=== PATIENT | female | born 1940 | race Caucasian/White ===

== ENCOUNTER → 2017-01-01 08:55 | Outpatient (CLI) | payer MEDICARE, OTHER ==
[~2017-01-01 08:55] MED LIST: ASPIRIN325 MG PO; COZAAR100 MG PO; FOLATE0.4 MG; HYDROCODONE-APA1 TAB; HYDROXYZINE HCL10 MG; OXAZEPAM15 MG PO; PLAVIX75 MG; PRILOSEC20 MG PO; RESTORIL15 MG PO; ZEBETA5 MG PO; ZETIA10 MG PO
== END | disposition home or self-care (01) ==
LOC: D.CT 08:55
DX: R91.1 Solitary pulmonary nodule (principal)

== ENCOUNTER 2017-04-21 10:18 | Outpatient (CLI) | payer MEDICARE, OTHER ==
--- NOTE | ~2017-04-21 | HEMODYNAMI ---
PATIENT:NICOLE CABA MEDICAL RECORD: [id number] : 40 LOCATION:[facility]SE[facility]ST[facility]N ADMISSION DATE: 04/21/17 Generatedon:04/21/201712:41 Patient name: NICOLE CABA Patient #: [id number] SSN: DO B: 1940 Date of study: 04/21/2017 Page: Of Hemodynamic Procedure Report Patient Data Patient Demographics Procedure consent was obtained First Name: NICOLE Gender: Female Last Name: GERTRUDIS : 1940 Middle Initial: HAND Age: 76 year(s) Patient #: [id number] Race: Unknown Additional ID: [id number] Contact details [address]: [address] [place] [address] State: [place] City: [place] Zip code: [address] Past Medical History Allergies Allergen Reaction Date Comments Reported Other allergy 04/21/2017 Codeine, Demerol, Possible contrast Admission Admission Data Admission Date: 04/21/2017 Admission Time: 10:18 Procedure Procedure Types Cath Procedure Miscellaneous Procedures Moderate Sedation up to 15 minutes Moderate Sedation up to 30 minutes Peripheral Cath Diagnostic Procedure Cath Peripheral Miqjb-Pdvlfhg-Zxk-Off Peripheral vascular Intervention Angioplasty DENTAL PRACTICE MANAGER Peripheral Artery Additional Stent Stent-Fem/Popw/plasty Procedure Description Procedure Date Procedure Date: 04/21/2017 Procedure Start Time: 12:07 Procedure End Time: 12:33 Procedure Staff Name Function Chalo Leigh MD Performing Physician Magalis Sparrow RT Scrub Bogdan Ponce RN Nurse Mery Fortune RT Monitor Zacarias Bishop RN Linux Kernel Developer Procedure Data Cath Procedure Fluoroscopy Diagnostic fluoroscopy Total fluoroscopy Time: 7.4 time: 7.4 min min Diagnostic fluoroscopy Total fluoroscopy dose: 122 dose: 122 mGy mGy Contrast Material Contrast Material Type Amount (ml) Isovue 300 106 Entry Location Entry Primary Successful Side Size Upsize Upsize Entry Closure Succes sful Closure Location (Fr) 1 (Fr) 2 (Fr) Remarks Device Remarks Femoral Right 5 Fr 6 Fr 6 Fr Exoseal artery Long Short Estimated blood loss: 5 ml Diagnostic catheters Device Type Used For End Catheter Placement Cordis Tempo 5Fr UF Multi-vessel catheter Angiography Procedure Complications No complications Procedure Medications Medication Administration Route Dosage Oxygen NC 2 l/min Lidocaine 2% added to field 20 Heparin Flush Bag added to field 2 bags (1000units/500ml NS) 0.9% NaCl I.V. 100 ml/hr Versed I.V. 1 mg Fentanyl I.V. 50 mcg Heparin Bolus I.V. 4000 units Versed I.V. 1 mg Fentanyl I.V. 50 mcg Fentanyl I.V. 50 mcg Fentanyl I.V. 50 mcg Hemodynamics Rest Heart Rate: 95 (bpm) Snapshots Pre Cath Intra NCS Post Cath Vital Signs Time Heart Resp SPO2 NIBP (mmHg) Rhythm Pain Sedation Rate (ipm) (%) Status Level (bpm) 11:57:41 101 16 97 185/111(139) NSR 0 (11) 10(A) , No pain 12:01:59 89 13 99 179/99(149) NSR 0 (11) 10(A) , No pain 12:06:19 79 16 100 151/83(117) NSR 0 (11) 10(A) , No pain 12:10:31 77 17 96 135/76(113) NSR 0 (11) 10(A) , No pain 12:14:39 76 16 100 130/73(110) NSR 0 (11) 9(A) , No pain 12:18:47 68 16 100 129/71(106) NSR 0 (11) 9(A) , No pain 12:22:54 76 15 99 131/67(104) NSR 0 (11) 9(A) , No pain 12:27:02 78 15 100 135/72(109) NSR 0 (11) 9(A) , No pain 12:31:10 77 16 100 129/71(107) NSR 0 (11) 10(A) , No pain Medications Time Medication Route Dose Verified Delivered Reason Notes Effectiveness by by 12:02:57 Oxygen NC 2 Chalo Mcfadden used for l/min Reese Ponce frameman 12:03:12 Lidocaine 2% added 20ml Chalo Isabel for local to vial Reese Leigh MD anesthetic field 12:03:19 Heparin Flush added 2 Chalo Isabel used for Bag to bags Reese Leigh MD procedure (1000units/500ml field NS) 12:03:27 0.9% NaCl I.V. 100 Chalo Buffie Per physician ml/hr Reese Ponce RN 12:07:21 Versed I.V. 1 mg Chalo Buffie for sedation Reese Ponce RN 12:07:27 Fentanyl I.V. 50 Chalo Buffie for sedation mcg Reese Ponce RN 12:15:10 Heparin Bolus I.V. 4000 Chalo Buffie for verifi ed units Reese Ponce RN anticoagulation with dr leigh 12:17:56 Versed I.V. 1 mg Chalo Buffie for sedation Reese Ponce RN 12:18:00 Fentanyl I.V. 50 Chalo Buffie for sedation mcg Reese Ponce RN 12:24:57 Fentanyl I.V. 50 Chalo Buffie for sedation mcg Reese Ponce RN 12:29:20 Fentanyl I.V. 50 Chalo Buffie for sedation mcg Reese Ponce RN Procedure Log Time Note 11:47:24 Zacarias Bishop RN sent for patient. Start room use. 11:47:25 Time tracking: Regular hours 11:47:29 Plan of Care:Hemodynamics will remain stable., Cardiac rhythm will remain stable., Comfort level will be maintained., Respiratory function will remain adequate., Patient/ family verbilizes understanding of procedure., Procedure tolerated without complication., Recovers from procedure without complications.. 11:49:04 Patient received from Pre/Post Procedure Room to CCL 2 Alert and oriented. Tansferred to table in Supine position. 11:49:05 Warm blankets applied, and gisele hugger turned on for patient comfort. 11:49:05 Correct patient and procedure confirmed by team. 11:49:06 Signed procedure consent form obtained from patient. 11:49:07 ECG and BP/O2 sat monitors applied to patient. 11:56:37 Vital chart was started 11:59:10 Baseline sample Acquired. 11:59:23 Rhythm: sinus rhythm 11:59:25 Full Disclosure recording started 11:59:37 H&P Date Dictated: 04/19/2017 Within 30 days and on chart., H&P Addendum completed by physician on day of procedure. (MUST COMPLETE FOR ALL OUTPATIENTS). 11:59:38 Pre-procedure instructions explained to patient. 11:59:39 Pre-op teaching completed and patient verbalized understanding. 11:59:40 Family in waiting room. 11:59:41 Patient NPO since Midnight. 12:00:13 Patient allergic to Other allergyCodeine, Demerol, Possible contrast 12:00:16 Is the patient allergic to Iodine/contrast media? Yes. 12:00:17 Was the patient premedicated? Yes 12:00:22 Is patient on blood thinner?Yes 12:00:50 Patient diabetic? No. 12:00:55 Previous problem with sedation/anesthesia? No ? 12:00:57 Snore? Yes 12:00:58 Sleep apnea? No 12:00:58 Deviated septum? No 12:00:59 Opens mouth fully? Yes 12:01:00 Sticks out tongue? Yes 12:01:01 Airway obstruction? No ? 12:01:04 Dentures? No ? 12:02:57 Oxygen 2 l/min NC was administered by Bogdan Ponce RN; used for procedure; 12:03:12 Lidocaine 2% 20ml vial added to field was administered by Chalo Leigh MD; for local anesthetic; 12:03:19 Heparin Flush Bag (1000units/500ml NS) 2 bags added to field was administered by Chalo Leigh MD; used for procedure; 12:03:27 0.9% NaCl 100 ml/hr I.V. was administered by Bogdan Ponce RN; Per physician; 12:03:51 Pre procedure: right dorsailis pedis pulse Doppler 12:03:54 Pre procedure: left dorsailis pedis pulse Doppler 12:03:56 Patient pain scale 0/10 ?. 12:04:02 IV patent on arrival in left forearm with 0.9% NaCl at [facility]. 12:05:30 Bilateral groins area was prepped with chlora-prep and draped in sterile fashion 12:05:32 Alarms reviewed by R. N. 12:05:32 Sharps counted by scrub and verified by R.N. 12:05:34 Physician arrived 12:05:34 --------ALL STOP TIME OUT------ 12:05:35 Final Timeout: patient, procedure, and site verified with staff and physician. All members of the team are in agreement. 12:05:37 Bilateral groins site verified by team. 12:05:39 Physical assessment completed. ASA score P 2 - A patient with mild systemic disease as per Chalo Leigh MD. 12:05:43 Sedation plan: IV Moderate Sedation Versed, Fentanyl 12:05:53 Use device set Femoral Dx 12:05:54 Acist Syringe opened to sterile field. 12:05:55 Bag Decanter opened to sterile field. 12:05:55 Medline Cath Pack opened to sterile field. 12:05:56 Terumo 5Fr [place] Sheath opened to sterile field. 12:05:57 St Alberto 260cm J .035 wire opened to sterile field. 12:06:02 Acist Hand Control opened to sterile field. 12:06:03 Acist Manifold opened to sterile field. 12:06:05 Tegaderm 4 x 4 opened to sterile field. 12:07:21 Versed 1 mg I.V. was administered by Bogdan Ponce RN; for sedation; 12:07:27 Fentanyl 50 mcg I.V. was administered by Bogdan Ponce RN; for sedation; 12:07:46 Procedure started. 12:07:50 Local anesthetic to right femoral artery with Lidocaine 2% by Chalo Leigh MD.INITIAL ACCESS ONLY 12:09:50 A 5 Fr sheath was inserted into the Right Femoral artery 12:10:00 A [employer] 5Fr UF catheter was advanced over the wire and used for Multi-vessel Angiography. 12:10:04 Abdominal angiogram w/ runoff was performed. 12:12:38 Catheter removed. 12:12:51 Terumo 6Fr [place] Destination Sheath opened to sterile field. 12:13:15 Merit BasixCompak Inflation Kit opened to sterile field. 12:13:16 [place] Sci Choice PT Extra Support J 300cm .014 gu opened to sterile field. 12:13:54 Terumo ANGLE 260cm glide wire opened to sterile field. 12:15:10 Heparin Bolus 4000 units I.V. was administered by Bogdan Ponce RN; for anticoagulation; verified with dr leigh 12:15:19 glide wire advanced. 12:15:27 Sheath upsized to a 6 Fr Long. 12:16:04 Terumo TORQUE DEVICE PLASTIC .038 opened to sterile field. 12:17:13 glide wire exchanged for choice pt wire 12:17:56 Versed 1 mg I.V. was administered by Bogdan Ponce RN; for sedation; 12:18:00 Fentanyl 50 mcg I.V. was administered by Bogdan Ponce RN; for sedation; 12:18:23 Inflation number: 1 A Saber 5.0 X 4 X 150 balloon was prepped and advanced across the Mid Posterior Tibial, Left, then inflated to 3 AILYN for 0:10 (min:sec). 12:19:01 Inflation number: 1 The Saber 5.0 X 4 X 150 balloon was reinflated across the Mid Popliteal, Left, to 5 AILYN for 0:10 (min:sec). 12:19:20 Inflation number: 1 The Saber 5.0 X 4 X 150 balloon was reinflated across the Mid Superficial Femoral, Left, to 9 AILYN for 0:10 (min:sec). 12:19:32 Inflation number: 2 The Saber 5.0 X 4 X 150 balloon was reinflated across the Mid Superficial Femoral, Left, to 9 AILYN for 0:10 (min:sec). 12:20:08 Balloon removed over the wire. 12:23:04 Cordis SMART Flex 5 X 40 X 120 stent was deployed across Mid Popliteal, Left . 12:24:52 Cordis SMART 6 X 80 X 120 stent was deployed across Mid Superficial Femoral, Left . 12:24:57 Fentanyl 50 mcg I.V. was administered by Bogdan Ponce RN; for sedation; 12:26:35 Inflation number: 3 A Saber 6.0 x 8 x 150 balloon was prepped and advanced across the Mid Superficial Femoral, Left, then inflated to 11 AILYN for 0:10 (min:sec). 12:26:41 Inflation number: 4 The Saber 6.0 x 8 x 150 balloon was reinflated across the Mid Superficial Femoral, Left, to 11 AILYN for 0:10 (min:sec). 12:27:13 Inflation number: 5 The Saber 6.0 x 8 x 150 balloon was reinflated across the Mid Superficial Femoral, Left, to 5 AILYN for 0:10 (min:sec). 12:28:46 Balloon removed over the wire. 12:28:48 Wire removed. 12:28:49 Guide catheter removed. 12:29:00 Terumo 6Fr [place] Sheath opened to sterile field. 12:29:11 Sheath upsized to a 6 Fr Short. 12:29:20 Fentanyl 50 mcg I.V. was administered by Bogdan Ponce RN; for sedation; 12:29:22 Cordis 6Fr Exoseal opened to sterile field. 12:29:45 Sheath removed intact; hemostasis achieved with Exoseal to the Right Femoral artery. 12:30:08 Procedure ended.(Physican Out) 12::39 Fluoroscopy time 07.40 minutes. 12::44 Flurop Dose total: 122 12::44 Fluoroscopy dose: 122 mGy 12:30:49 Contrast amount:Isovue 300 106ml. 12:30:50 Sharps counted by scrub and verified by R.N. 12:31:20 Insertion/operative site no bleeding no hematoma. 12:31:23 Post-op/insertion site Right Femoral artery dressed using a 4 x 4 and Tegaderm. 12:31:25 Post right femoral artery:stable 12::27 Post Procedure Pulses reassessed and unchanged 12::30 Post procedure rhythm: unchanged. 12:31:33 Estimated blood loss: 5 ml 12:31:34 Post procedure instruction explained to patient.Patient verbalizes understanding. 12:31:34 Patient needs reinforcement of post procedure teaching. 12:33:15 Procedure type changed to Cath procedure, Miscellaneous Procedures, Moderate Sedation up to 15 minutes, Moderate Sedation up to 30 minutes, Peripheral Cath Diagnostic Procedure, Cath Peripheral, Jzbqy-Lktaxwh-Jal-Off, Peripheral vascular Intervention, Angioplasty, DENTAL PRACTICE MANAGER Peripheral Artery Additional, Stent, Stent-Fem/Popw/plasty 12:33:17 Procedure and supply charges have been captured, reviewed, submitted and are correct. 12:33:21 Procedure Complication : No complications 12:33:24 Vital chart was stopped 12:33:25 See physician's report for complete and final results. 12:33:29 Report given to Pre/Post Procedure Room. 12:33:32 Patient transfered to Pre/Post Procedure Room with Stretcher. 12:33:34 Procedure ended. 12:33:34 Full Disclosure recording stopped 12:33:39 End room use (Document Last) Intervention Summary Intervention Notes Time ActionType Lesion and Equipment Action# Pressure Duration Attributes Used 12:18:23 Inflate Mid Saber 5.0 1 3 00:10 balloon Posterior X 4 X 150 Tibial, balloon Left 12:19:01 Reinflate Mid Saber 5.0 1 5 00:10 balloon Popliteal, X 4 X 150 Left balloon 12:19:20 Reinflate Mid Saber 5.0 1 9 00:10 balloon Superficial X 4 X 150 Femoral, balloon Left 12:19:32 Reinflate Mid Saber 5.0 2 9 00:10 balloon Superficial X 4 X 150 Femoral, balloon Left 12:23:04 Deploy self Mid Cordis 1 expanding Popliteal, SMART stent Left Flex 5 X 40 X 120 stent 12:24:52 Deploy self Mid Cordis 1 expanding Superficial SMART 6 X stent Femoral, 80 X 120 Left stent 12:26:35 Inflate Mid Saber 6.0 3 11 00:10 balloon Superficial x 8 x 150 Femoral, balloon Left 12:26:41 Reinflate Mid Saber 6.0 4 11 00:10 balloon Superficial x 8 x 150 Femoral, balloon Left 12:27:13 Reinflate Mid Saber 6.0 5 5 00:10 balloon Superficial x 8 x 150 Femoral, balloon Left Device Usage Item Name Manufacture Quantity Catalog Number Hospital Part Current Minim al Lot# / Charge Number Stock Stock Serial# Code Acist Acist 1 [id number] [id number] 20 Syringe Medical Systems Inc Bag Microtek 1 2002S 522113 21190 090783 5 DecHarimata Medical Inc. Medline Cardinal 1 [id number] [id number] 27465 139926 5 Cath Pack Health Terumo 5Fr Terumo 1 [id number] 895104 261903 685182 [address] Alberto 1 027581 319876 588825 794222 30 260cm J .035 wire Acist Hand Acist 1 66610 594200 333842 890343 5 Control Medical Systems Inc Acist Acist 1 86787 159440 511371 171878 5 Manifold Medical Systems Inc Tegaderm 4 3M 1 1626W 357265 944657 189913 5 x 4 Cordis Cardinal 1 [id number] 781802 965104 621092 10 Tempo 5Fr Health UF catheter Terumo 6Fr Terumo 1 RSR01 199808 72587 295013 5 [place] Destination Sheath Merit Merit 1 [id number] 573393 584319 249656 15 Referrizer Medical Inflation Kit [place]enn[place] Sci Denniston 1 [id number] 458591 317588 911848 5 Choice PT Scientific Extra Support J 300cm .014 gu Terumo Terumo 1 [id number] 994624 019373 278675 5 ANGLE 260cm glide wire Terumo [place]enn[place] 1 TD01 355032 201688 319380 5 TORQUE Scientific DEVICE PLASTIC .038 Saber 5.0 X Cardinal 1 [id number] 550083 061150 5 4 X 150 Health balloon Cordis Cardinal 1 [id number] 264983 339232 0 09406 SMART Flex Health 5 X 40 X 120 stent Cordis Cardinal 1 [id number] 807024 806093 0 [id number] SMART 6 X Health 80 X 120 stent Saber 6.0 x Cardinal 1 [id number] 119879 162336 670442 5 8 x 150 Health balloon Terumo 6Fr Terumo 1 [id number] 154636 857813 445499 40 [place] Sheath Cordis 6Fr Cardinal 1 EX600 038313 101831 426172 10 [facility] Signature Audit Aubrey Stage Time Signature Unsigned Intra-Procedure 04/21/2017 Mery Fortune 12:41:02 PM RT(R) Signatures Monitor : Mery Fortune RT Signature : Date : Time : [id number] [place] [address]
[2017-04-21] MEDS ORDERED: ZOCOR40 MG PO (10:38)
[2017-04-21] MEDS ORDERED: ZOLOFT50 MG PO (10:39)
[2017-04-21] MEDS ORDERED: INDOCIN25 MG PO (10:39)
[2017-04-21] MEDS ORDERED: ZETIA10 MG PO (10:40)
[2017-04-21] MEDS ORDERED: HYDROCODON-ACE1 EAC7 PO (10:41)
[2017-04-21] MEDS ORDERED: BISOPROLOL-HCT1 EAC1 PO (10:42)
[2017-04-21] MEDS ORDERED: GABAPENTIN100 MG PO (10:42)
[2017-04-21] MEDS ORDERED: OXAZEPAM30 MG PO (10:43)
[2017-04-21 10:56] VITALS: BP 173/68; BMI 27.5
[2017-04-21 12:13] LABS: ANION GAP 17.5 mmol/L (8-16); CALCIUM 9.9 mg/dL (8.5-10.1); CARBON DIOXIDE 24.6 mmol/L (21.0-32.0); CREATININE - SERUM 1.8 mg/dL (0.6-1.3); POTASSIUM - SERUM 5.1 mmol/L (3.5-5.1)
[2017-04-21 12:30] LABS: BASOPHILS 0.1 % (0-2); EOSINOPHILS 0 % (0-7); HEMATOCRIT 37.5 % (36.0-48.0); HEMOGLOBIN 11.8 g/dL (12-16); IMMATURE GRANULOCYTES 0.1 % (0-5); LYMPHOCYTES 20.6 % (15-50); MCH 28.4 pg (26.0-34.0); MCHC 31.5 g/dL (31.0-37.0); MCV 90.4 fL (80.0-100.0); MEAN PLATELET VOLUME 10.7 fL (7.4-10.4); MONOCYTES 2.1 % (2-11); NEUTROPHILS 77.1 % (40-80); PLATELET COUNT 226 10x3/uL (130-400); RBC 4.15 10x6/uL (4.00-5.40); RDW 16.5 % (11.5-14.5); WBC 7.2 10x3/uL (4.8-10.8)
--- NOTE | 2017-04-21 13:10 | NUR ---
2L NC, NO RESP DISTRESS NOTED. RIGHT GROIN 6F EXOSEAL CDI, NO BLEEDING OR HEMATOMA NOTED. VSS. NO C/O PAIN OR NAUSEA AT THIS TIME. INSTRUCTED PT TO KEEP HEAD FLAT ON PILLOW AND RIGHT LEG STRAIGHT. FAMILY AT BEDSIDE, CALL LIGHT WITHIN REACH.
--- NOTE | 2017-04-21 13:40 | NUR ---
RESTING QUIETLY WITH EYES CLOSED. 2L NC, NO RESP DISTRESS NOTED. RIGHT GROIN 6F EXOSEAL CDI, NO BLEEDING OR HEMATOMA NOTED. VSS. NO C/O AT THIS TIME. WILL CONTINUE TO MONITOR.
--- NOTE | 2017-04-21 13:55 | NUR ---
RESTING QUIETLY WITH EYES CLOSED. RIGHT GROIN 6F EXOSEAL CDI, NO BLEEDIG OR HEMATOMA NOTED. 2L NC, NO RESP DISTRESS. NO C/O AT THIST G[place]. VSS. CALL LIGHT WITHIN REACH.
--- NOTE | 2017-04-21 14:25 | NUR ---
2L NC, NO RESP DISTRESS NOTED. RIGHT GROIN 6F EXOSEAL CDI, NO BLEEDING OR HEMATOMA NOTED. DENIES ANY PAIN OR NAUSEA. VSS. WILL CONTINUE TO MONITOR.
--- NOTE | 2017-04-21 16:00 | NUR ---
HOB ELEVATED 30 DEGREES. RIGHT GROIN 6F EXOSEAL CDI, NO BLEEDING OR HEMATOMA NOTED.
--- NOTE | 2017-04-21 16:11 | NUR ---
LEFT HAND PIV D/C'D WITH CATHETER INTACT, BAND AID TO SITE. UP TO BEDSIDE TO GET DRESSED.
--- NOTE | 2017-04-21 16:20 | NUR ---
UP TO RESTROOM TO VOID.
--- NOTE | 2017-04-21 16:30 | NUR ---
DISCHARGE INSTRUCTIONS GIVEN, VERBALIZED UNDERSTANDING. TAKEN OUT VIA WHEELCHAIR BY CATH SHEET METAL ERECTOR. LEFT FACILITY WITH FAMILY MEMBER AND ALL PERSONAL BELONGINGS.
--- NOTE | 2017-04-23 16:47 | OP ---
PATIENT NAME: NICOLE CABA MEDICAL RECORD: [id number] :40 LOCATION:D.CAT ADMISSION DATE: SURGEON: PARIS SALGADO MD DATE OF OPERATION: 04/21/2017 PROCEDURES: 1. CLOTHING PATTERN PREPARER and stent, SFA, left. 2. CLOTHING PATTERN PREPARER and stent, popliteal, left. 3. CLOTHING PATTERN PREPARER, posterior tibial, left. 4. Aortofemoral runoff. 5. Abdominal aortography. INDICATIONS: Claudication and peripheral vascular disease. PROCEDURE IN DETAIL: After informed consent was obtained and after detailed explanation of risks, benefits as well as alternative therapies, the patient elected to proceed with angiogram and angioplasty. The right femoral area was prepped and draped in normal sterile fashion. The right femoral artery was cannulated via modified Seldinger technique with placement of a 6-Malay etwtty-eak-nsce sheath. All catheters were exchanged through the sheath. FINDINGS: The abdominal aortography was performed. The catheter was pulled down for aortofemoral runoff. The abdominal aortography revealed no significant abdominal aortic disease. No dissection or aneurysm formation. No renal artery stenosis. RIGHT LEG: A. Iliac: The common internal and external iliacs have mild irregularities, but no flow-limiting stenosis. B. Femoral system: The common and deep femorals are widely patent. The superficial femoral has up to 80 plus percent stenosis throughout the mid distal portion of the vessel. C. Popliteal and infrapopliteal vessels: The popliteal is patent. The infrapopliteal vessels are severely diffusely diseased. There appears to be only single vessel runoff to the posterior tibial. LEFT LEG: A. Iliac: The common internal and external iliacs have mild irregularities, but no flow-limiting stenosis. B. Femoral system: The common and deep femorals are widely patent. The superficial femoral has 80% to 85% stenosis in the mid distal vessel. C. Popliteal and infrapopliteal vessels: The popliteal has 99% stenosis. After this, anterior tibial and peroneal are totally occluded. Posterior tibial gives single vessel runoff to the foot, although diffusely diseased. There is, however, a 90% stenosis proximally in the posterior tibial. CLOTHING PATTERN PREPARER OF THE POSTERIOR TIBIAL: Balloon used was a 5.0 balloon. This 5.0 balloon was also used in popliteal and SFA. This yielded suboptimal result with severe intimal dissection throughout popliteal and SFA. The popliteal was addressed with a 5 x 40 SMART stent and the SFA with a 6 x 80 SMART stent. Result was 0% residual. OVERALL IMPRESSION: Successful CLOTHING PATTERN PREPARER and stent of SFA and popliteal in the left leg, going from 95% initial stenosis to 0% residual stenosis. OPERATIVE REPORT [id number] GERTRUDISNICOLE JEFE TRANSINT:[id number] Voice Confirmation ID: [id number] DOCUMENT ID: [id number] PARIS SALGADO MD at 1647 CC: [id number] DICTATION DATE: 04/21/17 1237 PRACTICE BILLING ASSOCIATE: 04/21/17 1510 DEP CLI 04/21/17 [facility] [address] [place] [address]
== END 2017-04-21 16:30 | disposition home or self-care (01) ==
LOC: D.CATH 10:18
PROVIDERS: Internal Medicine Interventional Cardiology
DX: I25.10 Atherosclerotic heart disease of native coronary artery without angina pectoris (principal); I70.219 Atherosclerosis of native arteries of extremities with intermittent claudication, unspecified extremity; I10 Essential (primary) hypertension; E78.5 Hyperlipidemia, unspecified; F17.200 Nicotine dependence, unspecified, uncomplicated; Z01.812 Encounter for preprocedural laboratory examination

== ENCOUNTER 2017-07-30 22:37 | Inpatient (IN) | payer MEDICARE, OTHER ==
[~2017-07-30] VITALS: Ht 157.5 cm; Wt 71.2 kg
--- NOTE | ~2017-07-30 | CN ---
PATIENT NAME:NICOLE CABA MEDICAL RECORD: [id number] : 40 LOCATION:D.MS [facility]2220 ADMIT DATE: 07/31/17 ACCOUNT: [id number] CONSULTING PHYSICIAN: FABIAN PUENTES MD REFERRING PHYSICIAN: CM KUO MD DATE OF CONSULTATION: 07/31/2017 HISTORY OF PRESENT ILLNESS: A 76-year-old female with known history of coronary artery disease. She has a history of peripheral vascular disease, status post right humerus fracture. Had yesterday an episode of chest pain associated with some nausea. Presented to the ER. Received nitroglycerin and morphine. Has been pain free since that time. Feels normal today. She has history of peripheral vascular disease, hypertension, dyslipidemia. Enzymes are negative. ECG without acute change. We are asked to see her concerning her cardiovascular status. PAST MEDICAL HISTORY: Includes; 1. History of peripheral vascular disease. 2. Hypertension. 3. Hyperlipidemia. 4. Gastroesophageal reflux disease. ALLERGIES: CODEINE. MEDICATIONS: Typically include Proventil 1 puff every 4 hours p.r.n., Plavix 75 every day, bisoprolol 5 every day, Zetia 10 every day, losartan 100 every day, simvastatin 40 every day, aspirin 325 every day, Neurontin 100 every day, indomethacin 25 every day, Singulair 10 at bedtime p.r.n., Prilosec 20 every day. SOCIAL HISTORY: Currently lives in [facility]. Does do some physical therapy. She is a nonsmoker. REVIEW OF SYSTEMS: The patient reports easy bruising but reports no swollen glands. The patient reports no fever, no night sweats, no significant weight gain, no significant weight loss. No significant exercise tolerance. The patient reports no dry eyes, no irritation, no vision change. Patient reports no difficulty hearing and no ear pain. Patient reports no frequent nose bleeds or nose and sinus problems. Patient reports on arm pain on exertion. No shortness of breath while lying down. No history of heart murmur. Patient reports no cough, no wheezing or coughing up blood. Patient reports no abdominal pain, no vomiting. Normal appetite. No diarrhea and not vomiting blood. No nausea and no constipation. Patient reports no incontinence. No difficulty urinating. No hematuria. No increased frequency. Patient reports no muscle aches. No weakness, no arthralgias, no back pain. No swelling of the extremities. Patient reports no abnormal mole, no jaundice, no rashes. Reports no loss of consciousness. No weakness and no numbness. No seizures, dizziness, or headaches. The patient reports no depression, no sleep disturbance, feeling safe in a relationship and no alcohol abuse. Patient reports on fatigue. Reports no runny nose or sinus pressure. No itching, no hives, and no frequent sneezing. PHYSICAL EXAMINATION: GENERAL: Pleasant female, in no acute distress. VITAL SIGNS: Blood pressure 97/41, pulse 75 and regular. CONSULT REPORT [id number] NICOLE CABA HEENT: Normocephalic, atraumatic. NECK: No bruits are noted. HEART: Regular. A II/ systolic ejection murmur. LUNGS: Good air excursion. ABDOMEN: Soft, nontender. EXTREMITIES: Pulses are 1+. There is no edema. NEUROLOGIC: Grossly intact. DIAGNOSTIC DATA: ECG without acute change. Cardiac enzymes are negative. IMPRESSION: Doubt acute coronary syndrome with negative enzymes, negative ECG changes. Technically with creatinine of 2.7, being considered for repair of the humeral fracture. Would check echocardiographic study to ensure LV function is normal and if this is the case would have no contraindication to surgery from a cardiovascular standpoint. TRANSINT:[id number] Voice Confirmation ID: [id number] DOCUMENT ID: [id number] FABIAN PUENTES MD at 1129 CC: [id number] DICTATION DATE: 07/31/17 1148 WARDROBE SUPERVISOR: 07/31/17 1441 ADM IN [place] [id number] [place] [address]
--- NOTE | ~2017-07-30 | EC ---
PATIENT:NICOLE CABA DATE OF SERVICE: 07/31/17 SEX: F MEDICAL RECORD: [id number] DATE OF : 40 LOCATION:[facility] AGE OF PATIENT: 76 ADMISSION DATE: 07/31/17 REFERRING PHYSICIAN: INTERPRETING PHYSICIAN: FABIAN PUENTES MD ECHOCARDIOGRAM REPORT ECHO CHARGES 4 ECHO COMPLETE CLINICAL DIAGNOSIS: CHEST PAIN HX CAD/STENT ECHOCARDIOGRAPHIC MEASUREMENTS (adult normal given) AC root (d.<3.7cm) 3.0 cm LV Septum d (<1.2 cm> 1.8 cm Valve Excursion 2.0 cm LV Septum (systole) 1.9 cm Left Atria (s.<4.0cm> 3.8 cm LVPW d(<1.2cm) 1.6 cm RV (d.<2.3cm) 3.9 cm LVPW (sytole) 1.8 cm LV diastole(<5.6CM) 4.9 cm MV E-F(>70mm/sec) cm LV systole 3.1 cm LVOT Diameter 1.7 cm MV exc.(>10mm) 1.7 cm Est.ejection fraction (50-75%) % Pericardial Effusion N DOPPLER: LVIT cm/sec A 102 cm/sec E 83.0 cm/sec LA cm/sec RVSP 42 mmHg LVOT 106 cm/sec AOP1/2T m/s Asc. Ao 156 cm/sec RVOT 75 cm/sec RA cm/sec PA 134 cm/sec AV Gradient Peak 9.75 mmHg AV Mean 4.78 mmHg AV Area 1.6 cm MV Gradient Peak 7.08 mmHg MV Mean 2.22 mmHg MV Area cm COMMENTS: Director Learning And Development: 2 TRACEY RENTERIA Laborer Pipelines: 3 Dr. [place] TAPE# PACS DATE OF SERVICE: 07/31/2017 Adequate 2-D echo, color flow and spectral Doppler, and M-mode. LVH present. LV internal dimension is normal. Wall motion is normal. EF is greater than or equal to 55%. Aortic valve is tricuspid. No evidence of stenosis by Doppler interrogation. Left atrium is normal 3.0 cm. Mitral valve shows no prolapse. Mild MR. Right-sided chamber is grossly normal. Mild TR. TRANSINT:[id number] Voice Confirmation ID: [id number] DOCUMENT ID: [id number] ECHOCARDIOGRAM REPORT [id number] NICOLE CABA 08/04/2017 Edited to correct date of service, dmm. FABIAN PUENTES MD at 1337 CC: [id number] DICTATION DATE: 08/01/17 1037 QUALITY CONTROL ANALYST: 08/01/17 1157 DIS IN 08/03/17 [place] [id number] [place] [id number]
[~2017-07-30 22:37] MED LIST changes: +BISOPROLOL-HCT1 EAC1 PO; +GABAPENTIN100 MG PO; +HYDROCODON-ACE1 EAC7 PO; +INDOCIN25 MG PO; +OXAZEPAM30 MG PO; +ZOCOR40 MG PO; +ZOLOFT50 MG PO
[2017-07-30 23:16] LABS: BASOPHILS 0.4 % (0-2); HEMATOCRIT 30.5 % (36.0-48.0); HEMOGLOBIN 9.5 g/dL (12-16); IMMATURE GRANULOCYTES 0.2 % (0-5); LYMPHOCYTES 25.3 % (15-50); MCH 27.7 pg (26.0-34.0); MCHC 31.1 g/dL (31.0-37.0); MCV 88.9 fL (80.0-100.0); MEAN PLATELET VOLUME 10.1 fL (7.4-10.4); MONOCYTES 6.8 % (2-11); NEUTROPHILS 60.3 % (40-80); PLATELET COUNT 261 10x3/uL (130-400); RBC 3.43 10x6/uL (4.00-5.40); RDW 16.5 % (11.5-14.5)
[2017-07-30 23:28] LABS: ALBUMIN 3.3 g/dL (3.4-5.0); ALKALINE PHOSPHATASE 65 U/L (46-116); ALT (SGPT) 11 U/L (10-68); CALC OSMOLALITY 294 mosm/kg (275-300); CALCIUM 8.9 mg/dL (8.5-10.1); CARBON DIOXIDE 29.2 mmol/L (21.0-32.0); CHLORIDE - SERUM 103 mmol/L (98-107); CREATININE - SERUM 2.7 mg/dL (0.6-1.3); GLUCOSE 168 mg/dL (74-106); POTASSIUM - SERUM 4.7 mmol/L (3.5-5.1); PROTEIN - SERUM 6.9 g/dL (6.4-8.2); SODIUM 140 mmol/L (136-145); UREA NITROGEN 45 mg/dL (7-18); eGFR NON AFRICAN AMERICAN 18 mL/min (90-120)
[2017-07-30 23:40] LABS: CKMB 0.9 U/L (0.0-3.6); CREATINE KINASE 31 UL (21-215); TROPONIN-I 0.017 ng/mL (0.000-0.060)
[2017-07-31 02:42] VITALS: BP 130/47; BMI 28.8
[2017-07-31 04:00] VITALS: BP 127/57
[2017-07-31] MEDS ORDERED: SINGULAIR10 MG PO (04:22)
[2017-07-31] MEDS ORDERED: PROVENTIL HFA6.7 GM INH (04:23)
[2017-07-31 08:49] VITALS: BP 97/41
[2017-07-31 11:42] VITALS: BMI 28.7
[2017-07-31 12:15] VITALS: Ht 157.5 cm; Wt 71.2 kg
[2017-07-31 12:36] VITALS: BP 117/52
[2017-07-31 13:29] LABS: % SATURATION 10 % (15-55); IRON 28 ug/dl (35-150); TOTAL IRON BIND CAPACITY 255 ug/dl (260-445); UNSAT IRON BIND CAPACITY 227 ug/dl (150-375)
[2017-07-31 16:36] VITALS: BP 134/60
[2017-07-31 20:00] VITALS: BP 128/53
[2017-07-31 21:16] LABS: APPEARANCE HAZY (CLEAR); BACTERIA FEW /hpf (NONE SEEN); BILIRUBIN NEGATIVE (NEGATIVE); COLOR YELLOW (YELLOW); GLUCOSE NEGATIVE (NEGATIVE); HYALINE CAST RARE /lpf (NONE SEEN); KETONE NEGATIVE (NEGATIVE); NITRITE NEGATIVE (NEGATIVE); PROTEIN NEGATIVE (NEGATIVE); RED CELLS - URINE OCC /hpf (0-5); UROBILINOGEN NORMAL (NORMAL); WHITE CELLS - URINE 0-5 /hpf (0-5)
[2017-08-01] VITALS: BP 156/66
[2017-08-01 04:00] VITALS: BP 127/70
[2017-08-01 04:50] LABS: BASOPHILS 0.6 % (0-2); EOSINOPHILS 9.3 % (0-7); HEMATOCRIT 28.3 % (36.0-48.0); HEMOGLOBIN 8.7 g/dL (12-16); IMMATURE GRANULOCYTES 0.1 % (0-5); LYMPHOCYTES 34.5 % (15-50); MCH 27.4 pg (26.0-34.0); MCHC 30.7 g/dL (31.0-37.0); MEAN PLATELET VOLUME 10.1 fL (7.4-10.4); MONOCYTES 6.6 % (2-11); NEUTROPHILS 48.9 % (40-80); PLATELET COUNT 264 10x3/uL (130-400); RBC 3.18 10x6/uL (4.00-5.40); RDW 16.3 % (11.5-14.5); WBC 7.1 10x3/uL (4.8-10.8)
[2017-08-01 04:57] LABS: ANION GAP 11.9 mmol/L (8-16); CALCIUM 8.7 mg/dL (8.5-10.1); CARBON DIOXIDE 28.2 mmol/L (21.0-32.0); CREATININE - SERUM 2.2 mg/dL (0.6-1.3); POTASSIUM - SERUM 5.1 mmol/L (3.5-5.1)
[2017-08-01 08:15] VITALS: BP 165/61
[2017-08-01 11:59] VITALS: BP 89/50
[2017-08-01 16:12] VITALS: BP 120/50
[2017-08-01 20:00] VITALS: BP 141/66
[2017-08-02 06:25] LABS: BASOPHILS 0.4 % (0-2); EOSINOPHILS 6.8 % (0-7); HEMATOCRIT 31.2 % (36.0-48.0); HEMOGLOBIN 9.6 g/dL (12-16); IMMATURE GRANULOCYTES 0.1 % (0-5); LYMPHOCYTES 28.4 % (15-50); MCH 27.1 pg (26.0-34.0); MCHC 30.8 g/dL (31.0-37.0); MCV 88.1 fL (80.0-100.0); MEAN PLATELET VOLUME 10.3 fL (7.4-10.4); MONOCYTES 7.5 % (2-11); NEUTROPHILS 56.8 % (40-80); PLATELET COUNT 285 10x3/uL (130-400); RBC 3.54 10x6/uL (4.00-5.40); RDW 15.9 % (11.5-14.5)
[2017-08-02 06:42] LABS: ANION GAP 14.7 mmol/L (8-16); CALCIUM 9.2 mg/dL (8.5-10.1); CARBON DIOXIDE 26.6 mmol/L (21.0-32.0); CREATININE - SERUM 1.8 mg/dL (0.6-1.3)
[2017-08-02 06:49] LABS: POTASSIUM - SERUM 4.3 mmol/L (3.5-5.1)
[2017-08-02 08:09] VITALS: BP 161/79
[2017-08-02 12:03] VITALS: BP 160/81
[2017-08-02 16:10] VITALS: BP 145/68
[2017-08-02 19:00] VITALS: BP 183/79
[2017-08-03] VITALS: BP 166/70
[2017-08-03 04:00] VITALS: BP 165/79
[2017-08-03 04:39] LABS: BASOPHILS 0.7 % (0-2); EOSINOPHILS 2.7 % (0-7); HEMATOCRIT 32.1 % (36.0-48.0); HEMOGLOBIN 9.9 g/dL (12-16); IMMATURE GRANULOCYTES 0.1 % (0-5); LYMPHOCYTES 29.2 % (15-50); MCHC 30.8 g/dL (31.0-37.0); MCV 87.5 fL (80.0-100.0); MONOCYTES 7.5 % (2-11); NEUTROPHILS 59.8 % (40-80); PLATELET COUNT 298 10x3/uL (130-400); RBC 3.67 10x6/uL (4.00-5.40); RDW 15.7 % (11.5-14.5); WBC 7.7 10x3/uL (4.8-10.8)
[2017-08-03 04:55] LABS: CALCIUM 9.2 mg/dL (8.5-10.1); CARBON DIOXIDE 30.4 mmol/L (21.0-32.0); CREATININE - SERUM 1.7 mg/dL (0.6-1.3); POTASSIUM - SERUM 4.4 mmol/L (3.5-5.1)
[2017-08-03 08:07] VITALS: BP 169/77
[2017-08-03 10:19] LABS: FOLATE (FOLIC ACID) - SERUM >20.0 ng/mL (>3.0)
[2017-08-03 11:46] VITALS: BP 167/77
== END 2017-08-03 14:27 | disposition home or self-care (01) | DRG 313 ==
LOC: D.ER 22:37 → D.MS 07-31 01:15
PROVIDERS: Family Medicine; Internal Medicine Nephrology
DX: R07.9 Chest pain, unspecified (principal); N17.9 Acute kidney failure, unspecified; S42.201G Unspecified fracture of upper end of right humerus, subsequent encounter for fracture with delayed healing; W19.XXXD Unspecified fall, subsequent encounter; I73.9 Peripheral vascular disease, unspecified; K21.9 Gastro-esophageal reflux disease without esophagitis; E78.5 Hyperlipidemia, unspecified; I10 Essential (primary) hypertension; I25.10 Atherosclerotic heart disease of native coronary artery without angina pectoris; G62.9 Polyneuropathy, unspecified; I95.9 Hypotension, unspecified; R41.0 Disorientation, unspecified; L89.620 Pressure ulcer of left heel, unstageable; L89.610 Pressure ulcer of right heel, unstageable; E86.0 Dehydration; B35.3 Tinea pedis; D64.9 Anemia, unspecified; S22.32XG Fracture of one rib, left side, subsequent encounter for fracture with delayed healing; Z86.73 Personal history of transient ischemic attack (TIA), and cerebral infarction without residual deficits; Z95.5 Presence of coronary angioplasty implant and graft

== ENCOUNTER 2017-08-06 12:30 | Observation (INO) | payer MEDICARE, OTHER ==
[~2017-08-06] VITALS: Ht 152.4 cm; Wt 70.8 kg
[~2017-08-06 12:30] MED LIST changes: +PROVENTIL HFA6.7 GM INH; +SINGULAIR10 MG PO
[2017-08-06 14:31] LABS: BASOPHILS 0.4 % (0-2); EOSINOPHILS 3.5 % (0-7); HEMOGLOBIN 9.7 g/dL (12-16); IMMATURE GRANULOCYTES 0.5 % (0-5); LYMPHOCYTES 12.9 % (15-50); MCH 26.9 pg (26.0-34.0); MCHC 30.3 g/dL (31.0-37.0); MCV 88.9 fL (80.0-100.0); MEAN PLATELET VOLUME 10.6 fL (7.4-10.4); MONOCYTES 5.1 % (2-11); NEUTROPHILS 77.6 % (40-80); PLATELET COUNT 271 10x3/uL (130-400); RDW 16.5 % (11.5-14.5); WBC 12.2 10x3/uL (4.8-10.8)
[2017-08-06 14:51] LABS: ALBUMIN 3.3 g/dL (3.4-5.0); ANION GAP 16.8 mmol/L (8-16); BILIRUBIN - TOTAL 0.54 mg/dL (0.2-1.3); CARBON DIOXIDE 24.9 mmol/L (21.0-32.0); CREATININE - SERUM 3.8 mg/dL (0.6-1.3); POTASSIUM - SERUM 4.7 mmol/L (3.5-5.1); PROTEIN - SERUM 6.6 g/dL (6.4-8.2)
[2017-08-06 14:58] LABS: APPEARANCE CLEAR (CLEAR); BILIRUBIN NEGATIVE (NEGATIVE); COLOR YELLOW (YELLOW); GLUCOSE NEGATIVE (NEGATIVE); KETONE NEGATIVE (NEGATIVE); NITRITE NEGATIVE (NEGATIVE); PROTEIN NEGATIVE (NEGATIVE); UROBILINOGEN NORMAL (NORMAL)
[2017-08-06 15:06] LABS: THYROID STIMULATING HORMONE 4.02 uIU/mL (0.36-3.74)
[2017-08-06 15:15] LABS: EPITHELIAL CELLS RARE /hpf (0-5); RED CELLS - URINE 0-5 /hpf (0-5); WHITE CELLS - URINE 0-5 /hpf (0-5)
[2017-08-06 15:29] LABS: TROPONIN-I 0.285 ng/mL (0.000-0.060)
[2017-08-06 16:58] VITALS: BP 147/60; Ht 152.4 cm; Wt 70.8 kg
[2017-08-06 21:05] LABS: CKMB 1.3 U/L (0.0-3.6); CREATINE KINASE 59 UL (21-215)
[2017-08-06 21:08] LABS: TROPONIN-I 0.156 ng/mL (0.000-0.060)
[2017-08-07] VITALS: BP 91/51
[2017-08-07 01:32] LABS: CREATINE KINASE 50 UL (21-215)
[2017-08-07 01:34] LABS: TROPONIN-I 0.141 ng/mL (0.000-0.060)
[2017-08-07 04:00] VITALS: BP 149/58
[2017-08-07 08:43] LABS: BASOPHILS 0.4 % (0-2); EOSINOPHILS 4.7 % (0-7); HEMATOCRIT 33.4 % (36.0-48.0); HEMOGLOBIN 10.2 g/dL (12-16); IMMATURE GRANULOCYTES 0.4 % (0-5); LYMPHOCYTES 16.3 % (15-50); MCH 27.1 pg (26.0-34.0); MCHC 30.5 g/dL (31.0-37.0); MCV 88.8 fL (80.0-100.0); MEAN PLATELET VOLUME 10.3 fL (7.4-10.4); MONOCYTES 4.1 % (2-11); NEUTROPHILS 74.1 % (40-80); PLATELET COUNT 281 10x3/uL (130-400); RBC 3.76 10x6/uL (4.00-5.40); RDW 16.3 % (11.5-14.5); WBC 12.7 10x3/uL (4.8-10.8)
[2017-08-07 09:17] LABS: CALC OSMOLALITY 301 mosm/kg (275-300); CALCIUM 8.8 mg/dL (8.5-10.1); CHLORIDE - SERUM 106 mmol/L (98-107); CKMB 1.1 U/L (0.0-3.6); CREATINE KINASE 66 UL (21-215); GLUCOSE 120 mg/dL (74-106); POTASSIUM - SERUM 4.7 mmol/L (3.5-5.1); SODIUM 143 mmol/L (136-145); UREA NITROGEN 56 mg/dL (7-18)
[2017-08-07 09:30] LABS: CREATININE - SERUM 2.8 mg/dL (0.6-1.3); TROPONIN-I 0.124 ng/mL (0.000-0.060); eGFR NON AFRICAN AMERICAN 17 mL/min (90-120)
[2017-08-07 11:00] VITALS: BP 150/79
== END 2017-08-07 20:00 | disposition home health service (06) ==
LOC: D.ER 12:30 → D.M2 15:36 → OBSVTIME 15:36 → D.M2 08-07 20:00
PROVIDERS: Emergency Medicine
DX: I95.9 Hypotension, unspecified (principal); N17.9 Acute kidney failure, unspecified; S42.301D Unspecified fracture of shaft of humerus, right arm, subsequent encounter for fracture with routine healing; W19.XXXD Unspecified fall, subsequent encounter; Z86.73 Personal history of transient ischemic attack (TIA), and cerebral infarction without residual deficits; I25.10 Atherosclerotic heart disease of native coronary artery without angina pectoris; Z95.5 Presence of coronary angioplasty implant and graft; R41.0 Disorientation, unspecified; G62.9 Polyneuropathy, unspecified

== ENCOUNTER 2017-09-24 14:00 | Inpatient (IN) | payer MEDICARE, OTHER ==
[~2017-09-24] VITALS: Ht 162.6 cm; Wt 74.5 kg
--- NOTE | ~2017-09-24 | OP ---
PATIENT NAME: NICOLE CABA MEDICAL RECORD: [id number] :40 LOCATION:D.[facility] ADMISSION DATE:09/24/17 SURGEON: CHELITA PHILIP MD DATE OF OPERATION: 09/24/2017 PREOPERATIVE DIAGNOSES: 1. Need for IV access. 2. Anemia of acute gastrointestinal bleeding. 3. Gastrointestinal bleed. 4. Dementia. 5. Coronary artery disease. 6. Hypertension. POSTOPERATIVE DIAGNOSES: 1. Need for IV access. 2. Anemia of acute gastrointestinal bleeding. 3. Gastrointestinal bleed. 4. Dementia. 5. Coronary artery disease. 6. Hypertension. PROCEDURE: Left subclavian vein triple-lumen central venous line placement. SURGEON: Chelita Philip MD REPORT OF PROCEDURE: The patient's left chest was prepped and draped in sterile fashion, 5 cc of 1% lidocaine was infused into the subcutaneous tissues. A needle was then used to cannulate the left subclavian vein. The guidewire was advanced with ease. Over this wire, a dilator was placed followed by the triple lumen catheter. The catheter aspirated nonpulsatile dark blood and flushed easily with normal saline. This was sutured into place with 3-0 silk ties and dressed appropriately. COMPLICATIONS: None. CONDITION: Stable. ANESTHESIA: Local. BLOOD LOSS: Minimal. Procedure done at the bedside. TRANSINT:[id number] Voice Confirmation ID: [id number] DOCUMENT ID: [id number] CHELITA PHILIP MD at 1319 CC: [id number] DICTATION DATE: 09/24/171814 UNDERWRITING MANAGER: 09/25/17 0046 DIS IN 09/26/17 [place] [id number] [place] [id number]
[2017-09-24 18:34] LABS: BASOPHILS 0.6 % (0-2); EOSINOPHILS 6.6 % (0-7); HEMATOCRIT 24.3 % (36.0-48.0); IMMATURE GRANULOCYTES 0.1 % (0-5); LYMPHOCYTES 29.9 % (15-50); MCH 27.1 pg (26.0-34.0); MCV 90.3 fL (80.0-100.0); MEAN PLATELET VOLUME 10.9 fL (7.4-10.4); MONOCYTES 5.5 % (2-11); NEUTROPHILS 57.3 % (40-80); RBC 2.69 10x6/uL (4.00-5.40)
[2017-09-24 18:48] LABS: APTT 27.7 SECONDS (22.8-39.4); INR 1.02 (0.85-1.17)
[2017-09-24 18:49] LABS: HEMOGLOBIN 7.3 g/dL (12-16)
[2017-09-24 18:50] LABS: PLATELET COUNT 183 10x3/uL (130-400)
[2017-09-24 18:59] LABS: ANION GAP 15.5 mmol/L (8-16); BILIRUBIN - TOTAL 0.32 mg/dL (0.2-1.3); CALCIUM 8.9 mg/dL (8.5-10.1); CARBON DIOXIDE 24.7 mmol/L (21.0-32.0); CREATININE - SERUM 2.3 mg/dL (0.6-1.3); POTASSIUM - SERUM 5.2 mmol/L (3.5-5.1); PROTEIN - SERUM 6.1 g/dL (6.4-8.2)
[2017-09-24 20:05] VITALS: BMI 28.2
[2017-09-24 21:07] VITALS: BP 148/58
[2017-09-25 01:58] VITALS: BP 128/44
[2017-09-25 06:23] LABS: HEMATOCRIT 29.6 % (36.0-48.0); HEMOGLOBIN 9.3 g/dL (12-16)
[2017-09-25 08:53] VITALS: BP 134/59
[2017-09-25 12:09] LABS: BASOPHILS 0.5 % (0-2); EOSINOPHILS 4.7 % (0-7); HEMATOCRIT 31.3 % (36.0-48.0); HEMOGLOBIN 9.8 g/dL (12-16); IMMATURE GRANULOCYTES 0.1 % (0-5); LYMPHOCYTES 18.5 % (15-50); MCH 28.3 pg (26.0-34.0); MCHC 31.3 g/dL (31.0-37.0); MCV 90.5 fL (80.0-100.0); MEAN PLATELET VOLUME 10.9 fL (7.4-10.4); MONOCYTES 4.7 % (2-11); NEUTROPHILS 71.5 % (40-80); PLATELET COUNT 148 10x3/uL (130-400); RDW 16.7 % (11.5-14.5); WBC 8.6 10x3/uL (4.8-10.8)
[2017-09-25 12:17] LABS: ANION GAP 14.3 mmol/L (8-16); CALCIUM 8.8 mg/dL (8.5-10.1); CREATININE - SERUM 2.3 mg/dL (0.6-1.3); POTASSIUM - SERUM 5.3 mmol/L (3.5-5.1)
[2017-09-25 12:18] LABS: RBC 3.46 10x6/uL (4.00-5.40)
[2017-09-25 12:34] VITALS: Ht 162.6 cm; Wt 74.5 kg
[2017-09-25 16:23] VITALS: BP 140/62
[2017-09-25 20:00] VITALS: BP 153/66
[2017-09-25 23:14] LABS: HEMATOCRIT 32.8 % (36.0-48.0); HEMOGLOBIN 10.3 g/dL (12-16)
[2017-09-26] VITALS: BP 135/51
[2017-09-26 04:00] VITALS: BP 154/73
[2017-09-26 06:25] LABS: BASOPHILS 0.3 % (0-2); EOSINOPHILS 6.1 % (0-7); HEMATOCRIT 31.4 % (36.0-48.0); HEMOGLOBIN 9.6 g/dL (12-16); IMMATURE GRANULOCYTES 0.3 % (0-5); LYMPHOCYTES 23.6 % (15-50); MCH 27.7 pg (26.0-34.0); MCHC 30.6 g/dL (31.0-37.0); MCV 90.5 fL (80.0-100.0); MEAN PLATELET VOLUME 10.9 fL (7.4-10.4); MONOCYTES 5.5 % (2-11); NEUTROPHILS 64.2 % (40-80); PLATELET COUNT 139 10x3/uL (130-400); RBC 3.47 10x6/uL (4.00-5.40); RDW 16.7 % (11.5-14.5); WBC 7.6 10x3/uL (4.8-10.8)
[2017-09-26 06:39] LABS: ANION GAP 13.4 mmol/L (8-16); CALCIUM 8.7 mg/dL (8.5-10.1); CREATININE - SERUM 2.2 mg/dL (0.6-1.3)
[2017-09-26 06:41] LABS: POTASSIUM - SERUM 4.4 mmol/L (3.5-5.1)
[2017-09-26 08:24] VITALS: BP 125/81
[2017-09-26 12:10] VITALS: BP 162/52
[2017-09-26] MEDS ORDERED: BACTRIM DS TABL1 TAB PO (14:08)
[2017-09-26 14:09] LABS: HEMATOCRIT 34.6 % (36.0-48.0); HEMOGLOBIN 10.8 g/dL (12-16)
[2017-09-26] MEDS ORDERED: CARAFATE1 G PO (14:11)
[2017-09-26] MEDS ORDERED: PROTONIX40 MG PO (14:11)
[2017-09-26 16:39] VITALS: BP 148/64
== END 2017-09-26 17:15 | disposition home or self-care (01) | DRG 378 ==
LOC: D.MS 14:00
PROVIDERS: Family Medicine; Internal Medicine Gastroenterology
PROC: 05H633Z Insertion of Infusion Device into Left Subclavian Vein, Percutaneous Approach (ICD-10-PCS; principal; 2017-09-24)
PROC: 0DD78ZX Extraction of Stomach, Pylorus, Via Natural or Artificial Opening Endoscopic, Diagnostic (ICD-10-PCS; 2017-09-25)
DX: K25.4 Chronic or unspecified gastric ulcer with hemorrhage (principal); D62 Acute posthemorrhagic anemia; N17.9 Acute kidney failure, unspecified; F03.90 Unspecified dementia, unspecified severity, without behavioral disturbance, psychotic disturbance, mood disturbance, and anxiety; I25.10 Atherosclerotic heart disease of native coronary artery without angina pectoris; I10 Essential (primary) hypertension; K21.9 Gastro-esophageal reflux disease without esophagitis; E86.0 Dehydration; K29.80 Duodenitis without bleeding; K20.9 Esophagitis, unspecified

== ENCOUNTER 2017-12-13 11:22 | Emergency (ER) | payer MEDICARE, OTHER ==
[2017-09-25 12:34] VITALS: BMI 28.2
[~2017-12-13 11:22] MED LIST changes: +BACTRIM DS TABL1 TAB PO; +CARAFATE1 G PO; +PROTONIX40 MG PO
[2017-12-13 13:00] LABS: BASOPHILS 0.5 % (0-2); EOSINOPHILS 7.5 % (0-7); HEMATOCRIT 35.3 % (36.0-48.0); HEMOGLOBIN 10.9 g/dL (12-16); IMMATURE GRANULOCYTES 0.4 % (0-5); LYMPHOCYTES 27.2 % (15-50); MCH 29.1 pg (26.0-34.0); MCHC 30.9 g/dL (31.0-37.0); MCV 94.4 fL (80.0-100.0); MEAN PLATELET VOLUME 11.1 fL (7.4-10.4); MONOCYTES 6.6 % (2-11); NEUTROPHILS 57.8 % (40-80); PLATELET COUNT 113 10x3/uL (130-400); RBC 3.74 10x6/uL (4.00-5.40); RDW 15.2 % (11.5-14.5); WBC 7.6 10x3/uL (4.8-10.8)
[2017-12-13 13:14] LABS: ALBUMIN 3.1 g/dL (3.4-5.0); BILIRUBIN - TOTAL 0.6 mg/dL (0.2-1.3); CALCIUM 8.7 mg/dL (8.5-10.1); CARBON DIOXIDE 24.6 mmol/L (21.0-32.0); CREATININE - SERUM 1.9 mg/dL (0.6-1.3)
[2017-12-13 13:20] LABS: ANION GAP 13.5 mmol/L (8-16); POTASSIUM - SERUM 4.1 mmol/L (3.5-5.1)
== END 2017-12-13 14:10 | disposition home or self-care (01) ==
LOC: D.ER 11:22
PROVIDERS: Family Medicine; Physician Assistant
DX: T81.4XXA Infection following a procedure, initial encounter (principal); I10 Essential (primary) hypertension

== ENCOUNTER 2018-06-08 15:13 | Inpatient (IN) | payer MEDICARE ==
[~2018-06-08] VITALS: Ht 162.6 cm; Wt 59.4 kg
--- NOTE | ~2018-06-08 | MORECARE ---
CASE MANAGEMENT DISCHARGE SUMMARY PATIENT: NICOLE CABA UNIT: [id number] ADM DATE: 06/08/18 AGE: 77 : 40 SEX: F ROOM/BED: D.2202 AUTHOR: JOHANNYDOC PHYSICIAN: REFERRING PHYSICIAN: QIANA HEDRICK MD DATE OF SERVICE: 06/09/18 Discharge Plan Patient Name: NICOLE CABA Facility: [facility]:[place] : 1940 Planned Disposition: Alf Facility Anticipated Discharge Date: Discharge Date: Expected LOS: Initial Reviewer: [email or web address] Initial Review Date: 06/08/2018 Generated: 06/09/18 1:02 pm Comments DCP- Discharge Planning Updated by [email or web address]: Fabby Mcleod on 06/09/18 11:[address] Patient Name: NICOLE CABA Admission Status: ER Accout number: [id number] Admission Date: 06-08-2018 : 1940 Admission Diagnosis: Attending: QIANA HEDRICK Current LOS: 1 Anticipated DC Date: Planned Disposition: Alf Facility Primary Insurance: MEDICARE A & B Discharge Planning Comments: CM met with patient to assess discharge planning needs. Patient was tearful when I was speaking with her. I am unsure if her answers are correct. She stated that she has a home and plans to return there at [place]. She stated that she has a brother (Arturo ) and a sister (Anastacia Smith) and that is all the family she has. She denies any DME or Home health. I asked her about [place] and she said "yes". CM will continue to follow and assist with dc planning Family Literacy Coordinator: Fabby Mcleod DCPIA - Discharge Planning Initial Assessment Updated by [email or web address]: Fabby Mcleod on 06/09/18 11:56 am * Is the patient Alert and Oriented? Yes * PCP DR BRISCOE * Pharmacy [facility] * Preadmission Environment Alf Facility * Facility Name [facility] * ADLs Partial Dependent * Partial ADLs (Assistance needed) Medication Management * Equipment None * List name and contact numbers for known caregivers / representatives who currently or will assist patient after discharge: ILIANA MAYBERRY (SON) [phone] * Additional services required to return to the preadmission environment? No * Can the patient safely return to the preadmission environment? Yes * Has this patient been hospitalized within the prior 30 days at any hospital? No Last DP export: 06/08/18 6:22 Patient Name: NICOLE CABA Page 93625 at 1202 All edits/amendments must be made on the electronic document DICTATION DATE: 06/09/181200 [facility] MANAGER: NICOLE 06/09/181200 RPT#: [id number] DC DATE: STATUS: ADM IN [facility] [address] [place] [address] END OF REPORT
--- NOTE | ~2018-06-08 | MORECARE ---
CASE MANAGEMENT DISCHARGE SUMMARY PATIENT: NICOLE CABA HAND UNIT: [id number] ADM DATE: 06/08/18 AGE: 77 : 40 SEX: F ROOM/BED: D.E01 AUTHOR: EDER ORLANDO PHYSICIAN: REFERRING PHYSICIAN: QIANA HEDRICK MD DATE OF SERVICE: 06/08/18 Discharge Plan Patient Name: NICOLE CABA [facility] [facility] 1940 Planned Disposition: Anticipated Discharge Date: Discharge Date: Expected LOS: Initial Reviewer: [email or web address] Initial Review Date: 06/08/2018 Generated: 06/08/18 8:22 pm Patient Name: NICOLE CABA Page 30381 at 1921 All edits/amendments must be made on the electronic document DICTATION DATE: 06/08/181921 POST CLOSER: NICOLE 06/08/181921 RPT#: [id number] DC DATE: STATUS: ADM IN [facility] [address] [place] [address] END OF REPORT
--- NOTE | ~2018-06-08 | MORECARE ---
CASE MANAGEMENT DISCHARGE SUMMARY PATIENT: NICOLE CABA UNIT: [id number] ADM DATE: 06/08/18 AGE: 77 : 40 SEX: F ROOM/BED: D.2206 AUTHOR: JOHANNY,DOC PHYSICIAN: REFERRING PHYSICIAN: QIANA HEDRICK MD DATE OF SERVICE: 06/20/18 Discharge Plan Patient Name: NICOLE CABA Facility: [facility]:[place] : 1940 Planned Disposition: Care Home Facility Anticipated Discharge Date: Discharge Date: 06/19/2018 Expected LOS: 0 Initial Reviewer: [email or web address] Initial Review Date: 06/08/2018 Generated: 06/20/18 11:03 am Comments DCP- Discharge Planning Updated by [email or web address]: Fabby Mcleod on 06/09/18 11:[address] Patient Name: NICOLE CABA Admission Status: ER Accout number: [id number] Admission Date: 06-08-2018 : 1940 Admission Diagnosis: Attending: QIANA HEDRICK Current LOS: 1 Anticipated DC Date: Planned Disposition: Care Home Facility Primary Insurance: MEDICARE A & B Discharge Planning Comments: CM met with patient to assess discharge planning needs. Patient was tearful when I was speaking with her. I am unsure if her answers are correct. She stated that she has a home and plans to return there at [place]. She stated that she has a brother (Arturo ) and a sister (Anastacia Smith) and that is all the family she has. She denies any DME or Home health. I asked her about [place] and she said "yes". CM will continue to follow and assist with dc planning Tobacco Dipper: Fabby Mcleod DCPIA - Discharge Planning Initial Assessment Updated by [email or web address]: Fabby Mcleod on 06/09/18 11:56 am * Is the patient Alert and Oriented? Yes * PCP DR BRISCOE * Pharmacy U[facility] * Preadmission Environment Care Home Facility * Facility Name [facility] * ADLs Partial Dependent * Partial ADLs (Assistance needed) Medication Management * Equipment None * List name and contact numbers for known caregivers / representatives who currently or will assist patient after discharge: ILIANA MAYBERRY ([place]) [phone] * Additional services required to return to the preadmission environment? No * Can the patient safely return to the preadmission environment? Yes * Has this patient been hospitalized within the prior 30 days at any hospital? No Last DP export: 06/09/18 11:02 Patient Name: NICOLE CABA Page 87485 at 1004 All edits/amendments must be made on the electronic document DICTATION DATE: 06/20/18 100 CAB SUPERVISOR: NICOLE 06/20/18 1003 RPT#: [id number] DC DATE:06/19/18 STATUS: [facility] [address] [place] [address] END OF REPORT
[2018-06-08] MEDS ORDERED: ZYLOPRIM100 MG PO (15:24)
[2018-06-08] MEDS ORDERED: CALCIUM 500 +1 EAC3 PO (15:26)
[2018-06-08] MEDS ORDERED: LOSARTAN POTASS25 MG PO (15:27)
[2018-06-08] MEDS ORDERED: CYCLOBENZAPRINE10 MG PO (15:27)
[2018-06-08] MEDS ORDERED: CYMBALTA20 MG PO (15:28)
[2018-06-08] MEDS ORDERED: MACROBID100 MG PO (15:30)
[2018-06-08] MEDS ORDERED: SINGULAIR10 MG (15:31)
[2018-06-08] MEDS ORDERED: PROMOD LIQUID P30 M1 PO (15:31)
[2018-06-08] MEDS ORDERED: PRAVACHOL20 MG (15:31)
[2018-06-08] MEDS ORDERED: NORVASC5 MG PO (15:32)
[2018-06-08 17:12] LABS: BASOPHILS 0.3 % (0-2); EOSINOPHILS 1.4 % (0-7); HEMATOCRIT 31.5 % (36.0-48.0); HEMOGLOBIN 9.8 g/dL (12-16); IMMATURE GRANULOCYTES 0.2 % (0-5); MCH 28.5 pg (26.0-34.0); MCHC 31.1 g/dL (31.0-37.0); MCV 91.6 fL (80.0-100.0); MEAN PLATELET VOLUME 10.2 fL (7.4-10.4); MONOCYTES 0.6 % (2-11); NEUTROPHILS 86.5 % (40-80); RBC 3.44 10x6/uL (4.00-5.40); RDW 16.6 % (11.5-14.5); WBC 13.2 10x3/uL (4.8-10.8)
[2018-06-08 17:13] LABS: PLATELET COUNT 261 10x3/uL (130-400)
[2018-06-08 17:34] LABS: ALBUMIN 2.6 g/dL (3.4-5.0); ALKALINE PHOSPHATASE 59 U/L (46-116); ALT (SGPT) 14 U/L (10-68); BILIRUBIN - TOTAL 0.38 mg/dL (0.2-1.3); CALC OSMOLALITY 294 mosm/kg (275-300); CALCIUM 9.9 mg/dL (8.5-10.1); CHLORIDE - SERUM 106 mmol/L (98-107); POTASSIUM - SERUM 5.6 mmol/L (3.5-5.1); PROTEIN - SERUM 7.3 g/dL (6.4-8.2); SODIUM 140 mmol/L (136-145); UREA NITROGEN 54 mg/dL (7-18); eGFR NON AFRICAN AMERICAN 26 mL/min (90-120)
[2018-06-08 17:51] LABS: GLUCOSE 123 mg/dL (74-106)
[2018-06-08 22:08] LABS: APPEARANCE CLEAR (CLEAR); BILIRUBIN NEGATIVE (NEGATIVE); COLOR YELLOW (YELLOW); GLUCOSE NEGATIVE (NEGATIVE); KETONE NEGATIVE (NEGATIVE); NITRITE NEGATIVE (NEGATIVE); PROTEIN NEGATIVE (NEGATIVE); RED CELLS - URINE OCC /hpf (0-5); SPECIFIC GRAVITY 1.015 (1.005-1.020); UROBILINOGEN NORMAL (NORMAL)
[2018-06-08 22:09] LABS: BACTERIA FEW /hpf (NONE SEEN)
[2018-06-08 23:03] VITALS: BP 118/52; BMI 22.5
[2018-06-09 03:00] VITALS: BP 172/71
[2018-06-09 08:57] VITALS: BP 131/69
[2018-06-09 10:47] VITALS: Ht 162.6 cm; Wt 59.4 kg
[2018-06-09 12:46] VITALS: BP 115/82
[2018-06-09 17:26] VITALS: BP 123/49
[2018-06-09 21:55] VITALS: BP 116/41
[2018-06-10 06:37] VITALS: BP 96/51
[2018-06-10 09:12] VITALS: BP 150/54
[2018-06-10 12:00] VITALS: BP 136/48
[2018-06-10 16:33] VITALS: BP 105/43
[2018-06-10 22:08] VITALS: BP 98/48
[2018-06-11 06:11] VITALS: BP 98/52
[2018-06-11 09:02] LABS: BASOPHILS 0.4 % (0-2); EOSINOPHILS 4.6 % (0-7); HEMATOCRIT 28.2 % (36.0-48.0); HEMOGLOBIN 8.7 g/dL (12-16); IMMATURE GRANULOCYTES 0.2 % (0-5); LYMPHOCYTES 20.8 % (15-50); MCH 28.4 pg (26.0-34.0); MCHC 30.9 g/dL (31.0-37.0); MCV 92.2 fL (80.0-100.0); MONOCYTES 6.3 % (2-11); NEUTROPHILS 67.7 % (40-80); PLATELET COUNT 249 10x3/uL (130-400); RBC 3.06 10x6/uL (4.00-5.40); RDW 16.8 % (11.5-14.5); WBC 10.3 10x3/uL (4.8-10.8)
[2018-06-11 09:27] LABS: ALBUMIN 2.2 g/dL (3.4-5.0); ANION GAP 14.6 mmol/L (8-16); BILIRUBIN - TOTAL 0.39 mg/dL (0.2-1.3); CALCIUM 9.2 mg/dL (8.5-10.1); CARBON DIOXIDE 24.5 mmol/L (21.0-32.0); CREATININE - SERUM 2.2 mg/dL (0.6-1.3); POTASSIUM - SERUM 5.1 mmol/L (3.5-5.1); PROTEIN - SERUM 6.4 g/dL (6.4-8.2)
[2018-06-11 10:04] VITALS: BP 108/57
[2018-06-11 16:22] VITALS: BP 101/46
[2018-06-11 20:54] VITALS: BP 98/34
[2018-06-12 08:23] VITALS: BP 128/53
[2018-06-12 12:16] VITALS: BP 104/43
[2018-06-12 16:40] VITALS: BP 133/37
[2018-06-12 21:57] VITALS: BP 83/27
[2018-06-13] VITALS: BP 108/47
[2018-06-13 05:00] VITALS: BP 100/60
[2018-06-13 06:45] LABS: BILIRUBIN - TOTAL 0.29 mg/dL (0.2-1.3); CALCIUM 8.1 mg/dL (8.5-10.1); CARBON DIOXIDE 21.9 mmol/L (21.0-32.0); CREATININE - SERUM 2.4 mg/dL (0.6-1.3); PROTEIN - SERUM 5.5 g/dL (6.4-8.2)
[2018-06-13 06:49] LABS: ANION GAP 14.4 mmol/L (8-16); POTASSIUM - SERUM 4.3 mmol/L (3.5-5.1)
[2018-06-13 06:56] LABS: APTT 23.4 SECONDS (22.8-39.4); INR 0.98 (0.85-1.17); PROTIME 12.7 SECONDS (11.6-15.0)
[2018-06-13 07:43] LABS: BASOPHILS 0.3 % (0-2); EOSINOPHILS 6.8 % (0-7); HEMATOCRIT 26.3 % (36.0-48.0); HEMOGLOBIN 8.1 g/dL (12-16); IMMATURE GRANULOCYTES 0.2 % (0-5); LYMPHOCYTES 21.9 % (15-50); MCH 28.2 pg (26.0-34.0); MCHC 30.8 g/dL (31.0-37.0); MCV 91.6 fL (80.0-100.0); MEAN PLATELET VOLUME 11.1 fL (7.4-10.4); MONOCYTES 4.8 % (2-11); PLATELET COUNT 227 10x3/uL (130-400); RBC 2.87 10x6/uL (4.00-5.40); RDW 16.9 % (11.5-14.5); WBC 9.6 10x3/uL (4.8-10.8)
[2018-06-13 08:39] VITALS: BP 172/77
[2018-06-13 12:41] VITALS: BP 119/52
[2018-06-13 20:33] VITALS: BP 120/80
[2018-06-14 05:01] VITALS: BP 134/84
[2018-06-14 06:53] LABS: BASOPHILS 0.2 % (0-2); EOSINOPHILS 6.9 % (0-7); HEMATOCRIT 23.2 % (36.0-48.0); IMMATURE GRANULOCYTES 0.2 % (0-5); MCH 28.1 pg (26.0-34.0); MCV 90.6 fL (80.0-100.0); MEAN PLATELET VOLUME 10.3 fL (7.4-10.4); MONOCYTES 5.3 % (2-11); NEUTROPHILS 68.4 % (40-80); PLATELET COUNT 195 10x3/uL (130-400); RBC 2.56 10x6/uL (4.00-5.40); RDW 16.8 % (11.5-14.5); WBC 8.7 10x3/uL (4.8-10.8)
[2018-06-14 07:07] LABS: ALBUMIN 1.8 g/dL (3.4-5.0); ANION GAP 14.9 mmol/L (8-16); BILIRUBIN - TOTAL 0.3 mg/dL (0.2-1.3); CALCIUM 8.1 mg/dL (8.5-10.1); CARBON DIOXIDE 19.1 mmol/L (21.0-32.0); PROTEIN - SERUM 5.3 g/dL (6.4-8.2)
[2018-06-14 07:08] LABS: HEMOGLOBIN 7.2 g/dL (12-16)
[2018-06-14 09:59] VITALS: BP 127/76
[2018-06-14 11:32] LABS: % SATURATION 9 % (15-55); IRON 12 ug/dl (35-150); TOTAL IRON BIND CAPACITY 123 ug/dl (260-445); UNSAT IRON BIND CAPACITY 111 ug/dl (150-375)
[2018-06-14 21:33] VITALS: BP 101/38
[2018-06-15] VITALS (13 sets, daily range): BP systolic 90–153; BP diastolic 37–68
[2018-06-15 05:38] LABS: BASOPHILS 0.3 % (0-2); EOSINOPHILS 5.7 % (0-7); HEMATOCRIT 23.8 % (36.0-48.0); IMMATURE GRANULOCYTES 0.2 % (0-5); MCH 28.1 pg (26.0-34.0); MCHC 30.3 g/dL (31.0-37.0); MEAN PLATELET VOLUME 10.6 fL (7.4-10.4); MONOCYTES 4.5 % (2-11); NEUTROPHILS 72.3 % (40-80); PLATELET COUNT 210 10x3/uL (130-400); RBC 2.56 10x6/uL (4.00-5.40); WBC 9.9 10x3/uL (4.8-10.8)
[2018-06-15 06:00] LABS: ALBUMIN 1.9 g/dL (3.4-5.0); ANION GAP 20.7 mmol/L (8-16); BILIRUBIN - TOTAL 0.4 mg/dL (0.2-1.3); CALCIUM 8.7 mg/dL (8.5-10.1); CARBON DIOXIDE 15.6 mmol/L (21.0-32.0); POTASSIUM - SERUM 4.3 mmol/L (3.5-5.1); PROTEIN - SERUM 5.2 g/dL (6.4-8.2)
[2018-06-15 06:23] LABS: HEMOGLOBIN 7.2 g/dL (12-16)
[2018-06-15 08:22] LABS: FOLATE (FOLIC ACID) - SERUM >20.0 ng/mL (>3.0)
[2018-06-15 19:52] LABS: BASOPHILS 0.4 % (0-2); EOSINOPHILS 1.1 % (0-7); HEMATOCRIT 28.5 % (36.0-48.0); IMMATURE GRANULOCYTES 0.3 % (0-5); LYMPHOCYTES 9.7 % (15-50); MCH 27.2 pg (26.0-34.0); MCHC 30.9 g/dL (31.0-37.0); MEAN PLATELET VOLUME 9.9 fL (7.4-10.4); MONOCYTES 5.4 % (2-11); NEUTROPHILS 83.1 % (40-80); PLATELET COUNT 185 10x3/uL (130-400); RDW 17.8 % (11.5-14.5); WBC 10.3 10x3/uL (4.8-10.8)
[2018-06-15 20:00] LABS: HEMOGLOBIN 8.8 g/dL (12-16); RBC 3.24 10x6/uL (4.00-5.40)
[2018-06-15 20:18] LABS: ANION GAP 19.4 mmol/L (8-16); CALCIUM 8.2 mg/dL (8.5-10.1); CARBON DIOXIDE 16.6 mmol/L (21.0-32.0); CREATININE - SERUM 1.7 mg/dL (0.6-1.3)
[2018-06-16] VITALS (8 sets, daily range): BP systolic 98–139; BP diastolic 47–78
[2018-06-16 06:57] LABS: BASOPHILS 0.2 % (0-2); EOSINOPHILS 2.6 % (0-7); HEMATOCRIT 27.1 % (36.0-48.0); HEMOGLOBIN 8.6 g/dL (12-16); IMMATURE GRANULOCYTES 0.1 % (0-5); LYMPHOCYTES 12.6 % (15-50); MCH 27.5 pg (26.0-34.0); MCHC 31.7 g/dL (31.0-37.0); MCV 86.6 fL (80.0-100.0); MEAN PLATELET VOLUME 10.2 fL (7.4-10.4); MONOCYTES 5.5 % (2-11); PLATELET COUNT 186 10x3/uL (130-400); RBC 3.13 10x6/uL (4.00-5.40); RDW 18.5 % (11.5-14.5); WBC 9.1 10x3/uL (4.8-10.8)
[2018-06-16 07:37] LABS: ALBUMIN 1.7 g/dL (3.4-5.0); ANION GAP 19.1 mmol/L (8-16); BILIRUBIN - TOTAL 0.51 mg/dL (0.2-1.3); CALCIUM 8.5 mg/dL (8.5-10.1); CARBON DIOXIDE 15.9 mmol/L (21.0-32.0); CREATININE - SERUM 1.6 mg/dL (0.6-1.3); PROTEIN - SERUM 5.3 g/dL (6.4-8.2)
[2018-06-17 04:00] VITALS: BP 96/52
[2018-06-17 06:35] LABS: BASOPHILS 0.2 % (0-2); EOSINOPHILS 4.1 % (0-7); HEMATOCRIT 25.6 % (36.0-48.0); HEMOGLOBIN 8.1 g/dL (12-16); IMMATURE GRANULOCYTES 0.2 % (0-5); MCH 27.2 pg (26.0-34.0); MCHC 31.6 g/dL (31.0-37.0); MCV 85.9 fL (80.0-100.0); MEAN PLATELET VOLUME 10.2 fL (7.4-10.4); MONOCYTES 6.3 % (2-11); NEUTROPHILS 76.2 % (40-80); PLATELET COUNT 171 10x3/uL (130-400); RBC 2.98 10x6/uL (4.00-5.40); RDW 18.3 % (11.5-14.5); WBC 8.7 10x3/uL (4.8-10.8)
[2018-06-17 07:03] LABS: ALBUMIN 1.5 g/dL (3.4-5.0); BILIRUBIN - TOTAL 0.44 mg/dL (0.2-1.3); CALCIUM 8.1 mg/dL (8.5-10.1); CARBON DIOXIDE 16.9 mmol/L (21.0-32.0); CREATININE - SERUM 1.5 mg/dL (0.6-1.3); PROTEIN - SERUM 5.1 g/dL (6.4-8.2)
[2018-06-17 07:05] LABS: ANION GAP 17.4 mmol/L (8-16); POTASSIUM - SERUM 3.3 mmol/L (3.5-5.1)
[2018-06-17 08:27] VITALS: BP 133/65
[2018-06-17 12:36] VITALS: BP 140/72
[2018-06-17 16:32] VITALS: BP 120/62
[2018-06-17 19:55] VITALS: BP 115/54
[2018-06-18] VITALS: BP 110/52
[2018-06-18 04:00] VITALS: BP 96/52
[2018-06-18 04:54] LABS: BASOPHILS 0.2 % (0-2); EOSINOPHILS 9.1 % (0-7); HEMATOCRIT 24.5 % (36.0-48.0); HEMOGLOBIN 7.9 g/dL (12-16); IMMATURE GRANULOCYTES 0.2 % (0-5); LYMPHOCYTES 14.2 % (15-50); MCH 27.6 pg (26.0-34.0); MCHC 32.2 g/dL (31.0-37.0); MCV 85.7 fL (80.0-100.0); MEAN PLATELET VOLUME 10.1 fL (7.4-10.4); NEUTROPHILS 69.3 % (40-80); PLATELET COUNT 164 10x3/uL (130-400); RBC 2.86 10x6/uL (4.00-5.40); RDW 18.3 % (11.5-14.5); WBC 8.3 10x3/uL (4.8-10.8)
[2018-06-18 05:19] LABS: CALCIUM 7.5 mg/dL (8.5-10.1); CARBON DIOXIDE 15.9 mmol/L (21.0-32.0); CREATININE - SERUM 1.4 mg/dL (0.6-1.3)
[2018-06-18 05:24] LABS: ANION GAP 15.9 mmol/L (8-16); POTASSIUM - SERUM 3.8 mmol/L (3.5-5.1)
[2018-06-18 08:48] VITALS: BP 104/48
[2018-06-18 13:06] VITALS: BP 117/54
[2018-06-18 16:00] VITALS: BP 117/60
== END 2018-06-19 02:17 | DRG 239 ==
LOC: D.ER 15:13 → D.EDHOLD 18:49 → D.MS 18:49 → D.SDCHOLD 06-10 07:53 → D.MS 06-10 07:55
PROVIDERS: Emergency Medicine; Family Medicine; General Practice; Internal Medicine; Orthopaedic Surgery
PROC: 0Y6H0Z3 Detachment at Right Lower Leg, Low, Open Approach (ICD-10-PCS; principal; 2018-06-15 12:45)
PROC: 0BH17EZ Insertion of Endotracheal Airway into Trachea, Via Natural or Artificial Opening (ICD-10-PCS; 2018-06-19)
DX: I70.234 Atherosclerosis of native arteries of right leg with ulceration of heel and midfoot (principal); J18.9 Pneumonia, unspecified organism; N17.9 Acute kidney failure, unspecified; G82.22 Paraplegia, incomplete; E87.2 Acidosis; I69.351 Hemiplegia and hemiparesis following cerebral infarction affecting right dominant side; S42.301K Unspecified fracture of shaft of humerus, right arm, subsequent encounter for fracture with nonunion; K59.00 Constipation, unspecified; L97.419 Non-pressure chronic ulcer of right heel and midfoot with unspecified severity; L89.322 Pressure ulcer of left buttock, stage 2; L89.312 Pressure ulcer of right buttock, stage 2; L89.610 Pressure ulcer of right heel, unstageable; E11.22 Type 2 diabetes mellitus with diabetic chronic kidney disease; J44.9 Chronic obstructive pulmonary disease, unspecified; N18.3 Chronic kidney disease, stage 3 (moderate); E11.51 Type 2 diabetes mellitus with diabetic peripheral angiopathy without gangrene; I69.361 Other paralytic syndrome following cerebral infarction affecting right dominant side; I69.919 Unspecified symptoms and signs involving cognitive functions following unspecified cerebrovascular disease; F01.50 Vascular dementia, unspecified severity, without behavioral disturbance, psychotic disturbance, mood disturbance, and anxiety; D64.9 Anemia, unspecified; R10.11 Right upper quadrant pain; I12.9 Hypertensive chronic kidney disease with stage 1 through stage 4 chronic kidney disease, or unspecified chronic kidney disease; I25.10 Atherosclerotic heart disease of native coronary artery without angina pectoris; I46.9 Cardiac arrest, cause unspecified; R53.1 Weakness; E78.5 Hyperlipidemia, unspecified; K59.09 Other constipation; K21.9 Gastro-esophageal reflux disease without esophagitis; M19.90 Unspecified osteoarthritis, unspecified site; F32.9 Major depressive disorder, single episode, unspecified; Z91.81 History of falling; Z89.512 Acquired absence of left leg below knee; Z95.5 Presence of coronary angioplasty implant and graft; Z72.0 Tobacco use